=== PATIENT | male | born 1985 | race Two or more races ===

== ENCOUNTER → 2025-03-21 | Outpatient (BNVA) | payer MEDICAID, SELFPAY | END | disposition home or self-care (01) | PROVIDERS: PCP Physician Assistant; Referring Provider Physician Assistant; Visit Provider Urology | DX: N40.1 Benign prostatic hyperplasia with lower urinary tract symptoms (principal); N13.8 Other obstructive and reflux uropathy; Z30.2 Encounter for sterilization; E78.1 Pure hyperglyceridemia; E66.9 Obesity, unspecified; Z68.28 Body mass index [BMI] 28.0-28.9, adult; Z87.891 Personal history of nicotine dependence | CPT/HCPCS: 81003; 99212; 99213; G0463 ==

== ENCOUNTER 2025-04-26 07:40 | Day surgery (SDC) | payer MEDICAID, SELFPAY ==
[2025-04-25 13:35] VITALS: BMI 26.6
[2025-04-26] VITALS (9 sets, daily range): BP systolic 101–137; BP diastolic 61–85; PULSE 55–63; RESP 12–22; TEMP 36.2–36.6; O2SAT 96–100; BMI 27.2
--- NOTE | 2025-04-26 09:30 | CHAP ---
Prayed with patient before the procedure.
--- NOTE | 2025-04-26 10:50 | PD.SUROPNT ---
Date of Procedure 04/26/25 Pre Op Diagnosis Elective sterilization Post Op Diagnosis Same Procedure Bilateral vasectomy Findings Bilateral vas no pathology Procedure Description Indication for procedure this is 40-year-old gentleman he is not he has 7 children desired bilateral vasectomy procedure and complications were discussed with the patient in great detail informed consent is obtained he understood very well there is no warranty for permanent sterilization literature regarding bilateral vasectomy was provided to the patient Procedure patient was brought to the operating room in a satisfactory condition after appropriate premedication was put on the operating table in a supine position he was appropriately identified by surgeon and operating room staff site and scope of the procedure were explained to patient again and general anesthesia was given uneventfully parts were prepped and draped in a usual sterile fashion. Next the right vas deferens was palpated between 2 fingers and a thumb 2% lidocaine with quarter percent Marcaine was instilled appropriately vertical skin incision was made proper hemostasis was secured. Next the vas deferens was brought into the incision it was from its various fascial coverings between 2 silver clips centimeter of the vas deferens was excised. The lumen of the vas deferens was diathermized with coagulation diathermy distal end of the vas deferens was buried between various fascial layers. Skin was approximated with 3-0 chromic. Similar procedure was repeated on the opposite side. Next this sterile dressings were applied. Pressure bandage was given Patient having tolerated the procedure well and was sent to recovery room in a satisfactory condition to be discharged home with full postoperative instructions were verbally as well as in writing to be followed in urology office in 12 weeks' time. Pathology / specimen None Estimated Blood Loss 0.2 Condition Stable Disposition PACU Surgeon Tyron Baltazar MD Surgical Staff Operation Date: 04/26/25 10:00 Case Staff Anesthesiologist: Chemo Olivarez
--- NOTE | 2025-04-26 11:04 | SUR.PHASEI ---
1047: Pt received in [facility] via [facility]al. Report from Jose HUITRON and Maryjane TIM (student), Dr. Garcia. Pt obtunded. Resp labored. Jaw thrust provided. Nasal airway inserted right nares. Resp became env
--- NOTE | 2025-04-26 11:07 | SUR.PHASEI ---
1047: (Cont) and unlabored. 02 sats 98% 5L/min via mask. Surgical site and dressing dry, clean, intact. 1108: Pt resting. Resp even, unlabored. VS stable. Dressing remains dry, clean, intact.
--- NOTE | 2025-04-26 11:32 | SUR.PHASEII ---
1115: Pt continues to rest with no complaints voiced. Resp even, unlabored. VS stable. Dressing remains dry, clean, intact. Denies pain.
--- NOTE | 2025-04-26 14:41 | SUR.PHASEII ---
1145: Pt fully awake, oriented x3. Resp even, unlabored. VS stable. Dressing remains dry, clean, intact. Denies pain. Sitting up tolerating po fluids with no difficulty swallowing and no n/v. 1205: Pt dressed and assisted to transport chair. Ambulation steady. Pt and stated understanding of discharge instructions via auto leasing manager Portia ORR. Pt discharged from [facility] in stable condition.
== END 2025-04-26 12:05 | disposition home or self-care (01) ==
PROVIDERS: PCP Physician Assistant; Referring Provider Urology; Visit Provider Urology
PROC: (CPT 55250; principal; 2025-04-26 09:45)
DX: Z30.2 Encounter for sterilization (principal)
CPT/HCPCS: 55250; A4217; A4649; J1100; J2250; J2405; J2704; J3010; J3490; A9270

== ENCOUNTER → 2025-07-28 | Outpatient (BNVA) | payer MEDICAID, SELFPAY | END | disposition home or self-care (01) | PROVIDERS: PCP Physician Assistant; Referring Provider Physician Assistant; Visit Provider Urology | DX: N40.0 Benign prostatic hyperplasia without lower urinary tract symptoms (principal); F17.210 Nicotine dependence, cigarettes, uncomplicated | CPT/HCPCS: 76872 ==